=== PATIENT | male | born 1985 | race Caucasian/White ===

== ENCOUNTER 2018-04-15 08:15 | Emergency (ER) | payer OTHER ==
[~2018-04-15] VITALS: Ht 193 cm; Wt 99.8 kg
[2018-04-15 08:26] VITALS: BP 122/77
--- NOTE | 2018-04-15 08:50 | ED CARDIAC/CP/PALPITATIONS ---
History of Present Illness General Chief Complaint: Chest Pain Stated Complaint: CP Source: patient, old records Exam Limitations: no limitations Vital Signs & Intake/Output Vital Signs & Intake/Output Vital Signs Date Time Temp Pulse Resp B/P B/P Pulse O2 O2 Flow FiO2 Mean Ox Delivery Rate 04/15 0826 97.9 80 18 122/77 98 Room Air Allergies Coded Allergies: No Known Allergies (07/23/16) Reconcile Medications Baclofen 10 MG TABLET 1 TAB PO TIDPRN PRN muscle spasm/strain Ibuprofen 600 MG TABLET 1 TAB PO Q6P PRN pain with food Triage Note: PRESENTS TO ED FOR EVALUATION OF LEFT AXILLARY AREA PAIN THAT STARTED THIS AM. ALSO REPORTS DISCOMFORT ON HIS MEDIAL BICEP AREA. DENIED NAUSEA OR VOMITING. Triage Nurses Notes Reviewed? yes Onset: Just prior to arrival Duration: hour(s):, constant, continues in ED Timing: recent history Quality/Severity: mild, aching Location: Left lateral 2-3 rib Radiation: arms Activities at Onset: activity ([employer]) Prior Chest Pain/Card Workup: no prior chest pain, no prior cardiac workup Modifying Factors: Worsens With: palpation. Nitro Today/Relief: no nitro taken today Aspirin Today: no aspirin today HPI: 1 day prior to admission patient practiced [email or web address]. Prior to admission after waking he complains of left lateral 2-3 rib aching mild pain radiating to his left upper arm. He denies fever chills nausea vomiting diarrhea abdominal pain shortness of breath headache dysuria rash bleeding change in motor sensory function. Past History Travel History Traveled to [place] past 21 day No Medical History Any Pertinent Medical History? none Neurological: NONE EENT: NONE Cardiovascular: NONE Respiratory: NONE Gastrointestinal: NONE Hepatic: NONE Renal: NONE Musculoskeletal: NONE Psychiatric: NONE Endocrine: NONE Blood Disorders: NONE Cancer(s): NONE STUDIO OWNER/Reproductive: NONE Surgical History Surgical History: non-contributory Psychosocial History What is your primary language Congolese Tobacco Use: Never used Family History Hx Contributory? No Review of Systems Review of Systems Constitutional: Reports: no symptoms. EENTM: Reports: no symptoms. Respiratory: Reports: no symptoms. Cardiovascular: Reports: see HPI, chest pain. GI: Reports: no symptoms. Genitourinary: Reports: no symptoms. Musculoskeletal: Reports: see HPI, muscle pain. Skin: Reports: no symptoms. Neurological/Psychological: Reports: no symptoms. Hematologic/Endocrine: Reports: no symptoms. Immunologic/Allergic: Reports: no symptoms. All Other Systems: Reviewed and Negative Physical Exam Physical Exam General Appearance: well developed/nourished, alert, awake, anxious, comfortable Head: atraumatic, normal appearance Eyes: Bilateral: normal appearance, PERRL, EOMI. Ears, Nose, Throat: normal pharynx, normal ENT inspection, hearing grossly normal Neck: normal inspection, supple, full range of motion, no midline tenderness Respiratory: normal breath sounds, chest non-tender, no respiratory distress, quiet respiration, lungs clear Cardiovascular: regular rate/rhythm, normal peripheral pulses, norml femoral pulses equa, deep tenderness insertion of left pectoralis Peripheral Pulses: 4+ carotid (R), 4+ carotid (L) Gastrointestinal: normal bowel sounds, soft, non-tender, no organomegaly Back: normal inspection, normal range of motion, no vertebral tenderness Extremities: normal inspection, normal capillary refill, normal range of motion, no edema Neurologic/Psych: no motor/sensory deficits, awake, alert, oriented x 3, normal gait, normal mood/affect, 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 Skin: intact, normal color, warm/dry Lymphatic: no anterior cervical dio Core Measures ACS in differential dx? No CVA/TIA Diagnosis No Sepsis Present: No Sepsis Focused Exam Completed? No Progress Differential Diagnosis: costochondritis, musculoskeletal pain Plan of Care: Orders Procedure Date/time Status EKG 04/15 0821 Active Diagnostic Imaging: Viewed by Me: Radiology Read. Discussed w/RAD: Radiology Read. Radiology Impression: no acute abnormality, no fracture, no dislocation Initial ED EKG: normal axis, normal intervals, normal p-waves, normal QRS complex, normal sinus rhythm, no ST T wave changes Departure Departure Time of Disposition: 947 Disposition: HOME OR SELF CARE Condition: Stable Clinical Impression Primary Impression: Acute chest wall pain Referrals: Dewey OROZCO,Siddharth Manzo (PCP/Family) Departure Forms: Customer Survey General Discharge Information Prescriptions: Current Visit Scripts Ibuprofen 1 TAB PO Q6P PRN pain #30 TAB with food Baclofen 1 TAB PO TIDPRN PRN muscle spasm/strain #30 TAB Critical Care Note Critical Care Note Critical Care Time: non-applicable
[2018-04-15] MEDS ORDERED: BACLOFEN10 M1 PO (09:26)
[2018-04-15] MEDS ORDERED: IBUPROFEN600 M1 PO (09:26)
--- NOTE | 2018-04-15 09:35 | RADIOLOGY REPORT ---
EXAMINATION: XR RIBS, LEFT CLINICAL INFORMATION: Left lateral rib pain COMPARISON: None TECHNIQUE: One view of the chest and 4 views of the left ribs FINDINGS: The cardiac and mediastinal contours are normal. The lungs are clear. There is no pleural effusion or pneumothorax. No rib fracture is seen. IMPRESSION: Unremarkable examination.
== END 2018-04-15 10:03 ==
LOC: ERH 08:15
DX: R07.89 Other chest pain (principal)
CPT/HCPCS: 71100-LT; 93005; 93010